=== PATIENT | female | born 1985 | race Caucasian/White ===

== ENCOUNTER 2022-02-05 17:21 | Emergency (ER) | payer BC ==
[~2022-02-05] VITALS: Ht 162.6 cm; Wt 79.4 kg
[2022-02-05] MEDS ORDERED: NEOMY/BACITRA/POLYMYXIN B OINT UD PACKET TP ONE ×2 (17:45→17:52)
[2022-02-05] MEDS ORDERED: TDAP DIPH,PERTUSS,TET VAC/PF 0.5 ML DISP.SYRIN IM ONE ×2 (17:45→17:52)
[2022-02-05] MEDS ORDERED: KETOROLAC TROMETHAMINE 15 MG INJ IM ONE (17:45)
[2022-02-05] MEDS ORDERED: KETOROLAC TROMETHAMINE 15 MG INJ ONE (17:52)
[2022-02-05] MEDS ORDERED: IBUP-1955 PO (18:35)
[2022-02-05] MEDS ORDERED: OXYC-128 PO (18:35)
== END 2022-02-05 18:48 | disposition home or self-care (01) ==
LOC: ER 17:26
DX: S92.351A Displaced fracture of fifth metatarsal bone, right foot, initial encounter for closed fracture (principal); W01.0XXA Fall on same level from slipping, tripping and stumbling without subsequent striking against object, initial encounter; Y92.89 Other specified places as the place of occurrence of the external cause; Y99.8 Other external cause status; S80.212A Abrasion, left knee, initial encounter; Z88.6 Allergy status to analgesic agent
CPT/HCPCS: 99284; 29515; 73610; 90715; 90471; J1885; A4663